=== PATIENT | male | born 1955 | race Caucasian/White ===

== ENCOUNTER 2017-08-01 18:09 | Inpatient (IN) | payer OTHER ==
[~2017-08-01] VITALS: Ht 162.6 cm; Wt 83.0 kg
[2017-08-01] MEDS ORDERED: AMLO-511 PO (18:27)
[2017-08-01] MEDS ORDERED: PANTOPRAZOLE SODIUM 40 MG/VIAL IVP ONE (18:45)
[2017-08-01] MEDS ORDERED: SODIUM CHLORIDE 0.9% 2,000 ML IV ONE (18:45)
[2017-08-01] MEDS ORDERED: PANTOPRAZOLE SODIUM 80 MG in SODIUM CHLORIDE 0.9% 100 ML IV SCH (19:00)
[2017-08-01 19:10] LABS: HEMATOCRIT 32.2 % (41-53); HEMOGLOBIN 11.2 g/dL (13.5-17.5); MEAN CORPUSCULAR HEMOGLOBIN 31.2 pg (26.0-34.0); MEAN CORPUSCULAR HGB CONC 34.9 G/dL (31.0-37.0); MEAN CORPUSCULAR VOLUME 89 fL (80-100); PLATELET COUNT (AUTO) 318 K/uL (150-450); RED BLOOD CELL COUNT(AUTO) 3.61 MIL/uL (4.50-5.90); RED CELL DISTRIBUTION WIDTH 14.1 % (11.5-14.5); WHITE BLOOD COUNT (AUTO) 12.4 K/uL (4.5-11.0)
[2017-08-01 19:21] LABS: CREATININE 1.63 mg/dL (0.60-1.30); INR 1.2 (0.9-1.1); POTASSIUM 4.4 mmol/L (3.5-5.1); PROTHROMBIN TIME 12.7 SEC (9.4-11.6)
[2017-08-01 19:26] LABS: ALBUMIN 2.7 g/dL (3.4-5.0); BILIRUBIN,TOTAL 0.5 mg/dL (0.1-1.0); TOTAL PROTEIN, SERUM 5.7 g/dL (6.4-8.2)
[2017-08-01 19:33] LABS: BAND NEUTROPHILS % (MANUAL) 20 % (1-5); LYMPHOCYTES % (MANUAL) 11 % (22-44); TOTAL CELLS COUNTED 100
[2017-08-01 19:41] LABS: B-TYPE NATRIURETIC PEPTIDE 34 pg/mL (0-100)
[2017-08-01 19:54] LABS: LACTIC ACID 3.4 mmol/L (0.4-2.0)
[2017-08-01] MEDS ORDERED: ALBUMIN HUMAN 5%-12.5GM/250ML 500 ML IV ONE (20:15)
[2017-08-01] MEDS ORDERED: 0.9% SODIUM CHLORIDE 10 ML SYRINGE IVP PRN (20:15)
[2017-08-01] MEDS ORDERED: ONDANSETRON HCL 4 MG/2 ML VIAL IVP PRN (20:15)
[2017-08-01 21:00] LABS: REFLEX LACTIC ACID? YES YES
[2017-08-01 22:21] VITALS: BP 96/73
[2017-08-01] MEDS: PANTOPRAZOLE SODIUM 40 MG/VIAL IVP SCH (22:48)
[2017-08-01 23:27] LABS: HEMATOCRIT 26.1 % (41-53); HEMOGLOBIN 9.2 g/dL (13.5-17.5)
[2017-08-02] VITALS (7 sets, daily range): BP systolic 86–116; BP diastolic 54–78
[2017-08-02 04:49] LABS: HEMATOCRIT 25.5 % (41-53)
[2017-08-02] MEDS ORDERED: LEVOFLOXACIN 500 MG/D5% WATER 100 ML IV ONE (06:00)
[2017-08-02] MEDS ORDERED: SODIUM CHLORIDE 0.9% 250 ML IV ONE (06:22)
[2017-08-02 06:27] LABS: BASOPHILS % (AUTO) 0.2 % (0.0-2.0); EOSINOPHILS % (AUTO) 0.1 % (1.0-6.0); LYMPHOCYTES # (AUTO) 1.3 K/uL (1.0-4.8); LYMPHOCYTES % (AUTO) 10.5 % (22.0-44.0); MEAN CORPUSCULAR HEMOGLOBIN 30.5 pg (26.0-34.0); MEAN CORPUSCULAR HGB CONC 34.3 G/dL (31.0-37.0); MEAN CORPUSCULAR VOLUME 89 fL (80-100); MONOCYTES # (AUTO) 0.5 K/uL (0.1-1.0); MONOCYTES % (AUTO) 3.9 % (2.0-9.0); NEUTROPHILS # (AUTO) 10.4 K/uL (1.8-7.7); PLATELET COUNT (AUTO) 242 K/uL (150-450); RED BLOOD CELL COUNT(AUTO) 2.89 MIL/uL (4.50-5.90); RED CELL DISTRIBUTION WIDTH 13.8 % (11.5-14.5); WHITE BLOOD COUNT (AUTO) 12.2 K/uL (4.5-11.0)
[2017-08-02] MEDS ORDERED: MIDAZOLAM HCL 5 MG/ML VIAL ONE (06:44)
[2017-08-02] MEDS ORDERED: FentaNYL CITRATE-PF 100 MCG/2 ML VIAL ONE (06:44)
[2017-08-02 06:46] LABS: INR 1.1 (0.9-1.1); PROTHROMBIN TIME 11.5 SEC (9.4-11.6)
[2017-08-02 06:46] LABS: NEUTROPHILS % (AUTO) 85.3 % (40.0-70.0)
[2017-08-02] MEDS ORDERED: *CLINICAL-LEVOFLOXACIN IVPB DOSING CLINICAL SCH ×2 (07:00)
[2017-08-02 07:02] LABS: ANION GAP 8 mmol/L (8-16); CALCIUM, TOTAL 8.3 mg/dL (8.8-10.5); CARBON DIOXIDE 25 mmol/L (22-29); CHLORIDE 109 mmol/L (98-107); GLOMERULAR FILTR. RATE CALC > 60 mL/min (>60); POTASSIUM 4.4 mmol/L (3.5-5.1); SODIUM SERUM 142 mmol/L (136-145); THYROID STIMULATING HORMONE 0.45 uIU/mL (0.36-3.74); UREA NITROGEN, BLOOD 57 mg/dL (7-18)
[2017-08-02] MEDS ORDERED: SODIUM CHLORIDE 0.9% 1,000 ML IV ONE (07:02)
[2017-08-02] MEDS ORDERED: SODIUM CHLORIDE 0.9% 500 ML IV ONE (07:39)
[2017-08-02] MEDS ORDERED: EPINEPHrine 1:10,000 [1 MG/10 ML] SYRINGE ONE (08:17)
[2017-08-02] MEDS: PANTOPRAZOLE SODIUM 40 MG/VIAL IVP SCH ×2 (08:48→19:50)
[2017-08-02] MEDS: MetroNIDAZOLE 750 MG/NACL 150 ML IV SCH ×3 (08:48→23:10)
[2017-08-02 09:00] LABS: ADD UA MICROSCOPIC NO; APPEARANCE,URINE CLEAR (CLEAR); GLUCOSE, URINE (UA) NEGATIVE (NEGATIVE); KETONES,URINE NEGATIVE (NEGATIVE); LEUKOCYTE ESTERASE ,URINE NEGATIVE (NEGATIVE); OCCULT BLOOD,URINE NEGATIVE (NEGATIVE); PROTEIN,URINE NEGATIVE (NEGATIVE)
[2017-08-02] MEDS ORDERED: TraMADol HCL 50 MG TABLET PO PRN (17:00)
[2017-08-03] VITALS (7 sets, daily range): BP systolic 91–112; BP diastolic 55–78
[2017-08-03] MEDS: LEVOFLOXACIN 250 MG/D5% WATER 50 ML IV SCH (05:05)
[2017-08-03 06:16] LABS: BASOPHILS % (AUTO) 0.4 % (0.0-2.0); EOSINOPHILS % (AUTO) 4.9 % (1.0-6.0); HEMATOCRIT 21.8 % (41-53); HEMOGLOBIN 7.6 g/dL (13.5-17.5); HEMOGLOBIN A1C 6.6 % (4.5-6.2); LYMPHOCYTES # (AUTO) 1.5 K/uL (1.0-4.8); LYMPHOCYTES % (AUTO) 18.7 % (22.0-44.0); MEAN CORPUSCULAR HEMOGLOBIN 31.1 pg (26.0-34.0); MEAN CORPUSCULAR HGB CONC 34.7 G/dL (31.0-37.0); MEAN CORPUSCULAR VOLUME 90 fL (80-100); MONOCYTES # (AUTO) 0.6 K/uL (0.1-1.0); MONOCYTES % (AUTO) 7.1 % (2.0-9.0); NEUTROPHILS # (AUTO) 5.7 K/uL (1.8-7.7); NEUTROPHILS % (AUTO) 68.9 % (40.0-70.0); PLATELET COUNT (AUTO) 203 K/uL (150-450); RED BLOOD CELL COUNT(AUTO) 2.43 MIL/uL (4.50-5.90); RED CELL DISTRIBUTION WIDTH 14.2 % (11.5-14.5); WHITE BLOOD COUNT (AUTO) 8.3 K/uL (4.5-11.0)
[2017-08-03 06:38] LABS: ALANINE AMINOTRANSFERASE 210 U/L (12-78); ALBUMIN 2.7 g/dL (3.4-5.0); ANION GAP 5 mmol/L (8-16); ASPARTATE AMINOTRANSFERASE 44 U/L (15-37); BILIRUBIN,TOTAL 0.4 mg/dL (0.1-1.0); CALCIUM, TOTAL 8.1 mg/dL (8.8-10.5); CARBON DIOXIDE 29 mmol/L (22-29); CHLORIDE 105 mmol/L (98-107); CHOL/HDL RATIO 4.3 (4.2-7.3); CREATININE 0.88 mg/dL (0.60-1.30); GLOMERULAR FILTR. RATE CALC > 60 mL/min (>60); SODIUM SERUM 139 mmol/L (136-145); TOTAL PROTEIN, SERUM 5.4 g/dL (6.4-8.2); UREA NITROGEN, BLOOD 25 mg/dL (7-18)
[2017-08-03 07:16] LABS: HEPATITIS Bs ANTIGEN SCREEN P Negative (Negative); HEPATITIS C AB SCREEN <0.1 s/co ratio (0.0-0.9)
[2017-08-03] MEDS: MetroNIDAZOLE 750 MG/NACL 150 ML IV SCH ×3 (08:12→23:05)
[2017-08-03] MEDS: PANTOPRAZOLE SODIUM 40 MG/VIAL IVP SCH ×2 (08:12→20:18)
[2017-08-03 16:23] LABS: BASOPHILS % (AUTO) 0.5 % (0.0-2.0); EOSINOPHILS % (AUTO) 5.4 % (1.0-6.0); HEMATOCRIT 23.1 % (41-53); LYMPHOCYTES # (AUTO) 1.7 K/uL (1.0-4.8); LYMPHOCYTES % (AUTO) 22.6 % (22.0-44.0); MEAN CORPUSCULAR HEMOGLOBIN 31.2 pg (26.0-34.0); MEAN CORPUSCULAR HGB CONC 34.7 G/dL (31.0-37.0); MEAN CORPUSCULAR VOLUME 90 fL (80-100); MONOCYTES # (AUTO) 0.7 K/uL (0.1-1.0); MONOCYTES % (AUTO) 8.7 % (2.0-9.0); NEUTROPHILS # (AUTO) 4.8 K/uL (1.8-7.7); NEUTROPHILS % (AUTO) 62.8 % (40.0-70.0); PLATELET COUNT (AUTO) 201 K/uL (150-450); RED BLOOD CELL COUNT(AUTO) 2.57 MIL/uL (4.50-5.90); WHITE BLOOD COUNT (AUTO) 7.6 K/uL (4.5-11.0)
[2017-08-04 00:02] VITALS: BP 113/66
[2017-08-04 03:30] VITALS: BP 98/70
[2017-08-04] MEDS: LEVOFLOXACIN 250 MG/D5% WATER 50 ML IV SCH (05:06)
[2017-08-04 07:49] VITALS: BP 105/77
[2017-08-04] MEDS: MetroNIDAZOLE 750 MG/NACL 150 ML IV SCH (08:37)
[2017-08-04] MEDS: PANTOPRAZOLE SODIUM 40 MG/VIAL IVP SCH (08:37)
[2017-08-04 11:33] VITALS: BP 113/76
[2017-08-04] MEDS ORDERED: PANT20TA PO (15:10)
[2017-08-04] MEDS ORDERED: LEVO750T21 PO (15:12)
[2017-08-04] MEDS ORDERED: POTASSIUM CHL 20 MEQ/0.9% NS 1,000 ML IV ONE (17:15)
== END 2017-08-04 16:00 | disposition home or self-care (01) | DRG 368 ==
LOC: EMS 18:10 → ICU 20:40 → 6N 08-02 17:45
PROVIDERS: ADMIT Internal Medicine; ATTEND Internal Medicine
PROC: 0DJ08ZZ Inspection of Upper Intestinal Tract, Via Natural or Artificial Opening Endoscopic (ICD-10-PCS; principal; 2017-08-02 08:30)
DX: K22.6 Gastro-esophageal laceration-hemorrhage syndrome (principal); J18.9 Pneumonia, unspecified organism; N17.9 Acute kidney failure, unspecified; I12.9 Hypertensive chronic kidney disease with stage 1 through stage 4 chronic kidney disease, or unspecified chronic kidney disease; E86.0 Dehydration; D50.0 Iron deficiency anemia secondary to blood loss (chronic); N18.9 Chronic kidney disease, unspecified
CPT/HCPCS: 74176; 76770; 80074; 80307; 82271; 83036; 83605; 83735; 84439; 84443; 85014; 85018; 86850; 86900; 86901; 86920; 87040; 87081; 93005; 96361; 96365; 96366; 96368; 96375; 99291; C9113; G0480; J0171; J1956; J2250; J3010; J3480; J3490; J7030; J7040; J7050; P9041